=== PATIENT | female | born 1930 | race Caucasian/White ===

== ENCOUNTER → 2018-03-06 | Outpatient (CLI) | payer MEDICARE ==
[~2018-03-06] MED LIST: DIATRIZOATE MEGL/DIATRIZOA SOD 30 ML BTL PO ONE; IOPAMIDOL 370 MG/ML 200 ML INFUS..BTL INJ ONE; SODIUM CHLORIDE 0.9% 100 ML ONE
[2018-03-06 18:54] LABS: CREATININE, SERUM 1.45 mg/dL (0.57-1.11)
--- NOTE | 2018-03-06 19:47 | Diagnostic Imaging Report ---
CT Abdomen And Pelvis with Intravenous Contrast INDICATION: Left lower quadrant pain TECHNIQUE: Thin collimation axial images obtained from the diaphragm to the level of the pubic symphysis following the uneventful administration of 75 cc of low osmolar, nonionic intravenous contrast. RADIATION DOSE: Total DLP: 160.24 mGy*cm Estimated effective dose: (DLP x 0.015 x size factor) mSv CTDIvol has been reviewed. It is below the limits set by the Radiation Protocol Committee (RPC). COMPARISON: None. ABDOMEN FINDINGS: Lung Bases: Minimal basilar atelectasis. The heart is top normal in size. The esophagus is collapsed. Liver: Decreased attenuation. No evidence for mass. Gallbladder: Present and appears normal. No biliary ductal dilatation. Pancreas: Atrophic. No mass or ductal dilatation. Spleen: Normal in size. No evidence of mass.. Adrenal Glands: Mild thickening of the adrenal glands. No evidence for mass. Kidneys: Right: Normal enhancement. No soft tissue mass. No hydronephrosis. Left: Normal enhancement. No soft tissue mass. No hydronephrosis. Lymph Nodes: No abdominal or periaortic lymph nodes. Aorta: Normal in diameter and diffusely calcified PELVIS FINDINGS: Bowel: Stomach: Normal. Small Bowel: Contains enteric contrast. No wall thickening or dilatation. Large Bowel: Diverticulosis coli predominantly in the sigmoid colon. No associated inflammation. There is enteric contrast in the right colon. Moderate burden of stool in the rectum. Appendix: Not visualized and may be absent or collapsed. Bladder: Normal. No ureteral dilatation. The uterus is absent. No adnexal mass. No free fluid or fluid collection. Bones: Superior endplate compression deformity of L2. The spinal canal is widely patent. Mild to moderate degenerative changes of the lower thoracic and lower lumbar spine. IMPRESSION: 1. Diverticulosis coli. No evidence for bowel obstruction or inflammation. 2. Mild hepatic steatosis. 3. Superior endplate compression deformity of L2. Signed by: Dr. Sudheer Malone MD on 03/06/2018 7:43 PM
== END ==
LOC: CT 17:38
PROVIDERS: ATTEND Family Medicine
DX: R10.32 Left lower quadrant pain (principal)
CPT/HCPCS: 36415; 74177; 82565; 84520; J7050; Q9967